=== PATIENT | female | born 1965 | race Caucasian/White ===

== ENCOUNTER 2024-06-08 22:17 | Inpatient (IN) | payer OTHER, SELFPAY ==
--- NOTE | 2024-06-08 | ECG_ITS ---
Test Reason : ABDOMINAL PAIN Blood Pressure : / mmHG Vent. Rate : 064 BPM Atrial Rate : 064 BPM P-R Int : 138 ms QRS Dur : 082 ms QT Int : 424 ms P-R-T Axes : 031 -04 043 degrees QTc Int : 437 ms Normal sinus rhythm Nonspecific ST and T wave abnormality Abnormal ECG No previous ECGs available Referred By: Generic ED Physician Electronically Signed By:NIURKA HERNANDES
--- NOTE | ~2024-06-08 | MR_ITS ---
EXAMINATION: MR ABDOMEN WITHOUT AND WITH CONTRAST CLINICAL INFORMATION: Abdominal pain, pancreatitis. COMPARISON: CT abdomen/pelvis 06/09/2024. TECHNIQUE: MR abdomen was performed without and with use of 10 mL intravenous Gadavist gadolinium contrast. Postcontrast images are performed in multiphase dynamic sequences. Imaging was performed in 3 planes. 3D MRCP images were processed on an independent workstation under concurrent supervision. FINDINGS: LUNG BASES: Bibasilar subsegmental atelectasis. LIVER, GALLBLADDER, AND BILIARY TREE: Enlarged liver measuring 21.6 cm craniocaudally with some degree of signal loss in the out of phase dual-echo images suggesting hepatic steatosis. Otherwise, the liver is normal in morphology. Regions of arterial phase hyperenhancement surrounding some of the intrahepatic dilated bile ducts in the superior right hepatic lobe (18:15) that become isoattenuating to liver background on later phases of contrast with no clear corresponding T2 signal abnormality. Cholecystectomy. Redemonstration of severe intra and extrahepatic biliary ductal dilatation with the common hepatic and common bile ducts measuring up to 1.2 cm in diameter. A few subtle central and anteriorly located foci of low T2 signal are noted in the lumen of the CBD (for example images 35 and 36 series 5). The CBD tapers immediately adjacent to the ampullary region without a discrete measurable obstructive mass. PANCREAS: Again noted is significant peripancreatic fat stranding and free fluid extending into the retroperitoneum and right greater than left paracolic gutters, in keeping with acute edematous interstitial pancreatitis. There is free fluid as well filling the pancreatic clefts but overall there is preserved pancreatic parenchymal enhancement without evidence of necrosis. A discrete focal pancreatic lesion is not visualized. No organized peripancreatic collections. The main pancreatic duct is mildly prominent at the level of the head measuring up to 5 mm in diameter without clear intraluminal defects nor abrupt transition points. SPLEEN: Normal. ADRENAL GLANDS: Normal. KIDNEYS AND URETERS: Cystic mass exophytically from the upper right kidney measuring 9.4 x 10.4 x 9.7 cm with less than 3 thin and smooth internal septations, no mural nodules and no measurable enhancement, Bosniak 2 lesion, for which no imaging followup is recommended. Multiple additional much smaller simple Bosniak 1 cortical cysts bilaterally, for which no imaging followup is recommended. No hydronephrosis. Symmetric nephrograms. GASTROINTESTINAL TRACT: No evidence of bowel obstruction. ABDOMINAL WALL: No significant hernia is appreciated. LYMPH NODES: Prominent periportal and peripancreatic lymph nodes, most likely reactive in nature. No lymphadenopathy by size criteria. VASCULAR: Normal caliber of the abdominal aorta. No significant abnormality. OSSEOUS STRUCTURES: No acute or aggressive-appearing osseous findings. Degenerative changes of the spine. ADDITIONAL FINDINGS: A few homogeneously low T2 signal uterine lesions are most consistent with fibroids. The endometrium is within the upper limits of normal for a patient of this age measuring up to 7 mm in thickness. MR/MR abdomen wo/w con IMPRESSION: Again noted findings most consistent with acute edematous interstitial pancreatitis. Redemonstration of severe intra and extrahepatic biliary ductal dilatation up to the level of the ampulla with a few very subtle indeterminate low T2 signal voids in the lumen of the CBD that could be artifactual, although debris and stones are not excluded. The proximal main pancreatic duct is mildly prominent measuring up to 5 mm in diameter without discrete intraluminal defects nor measurable obstructive mass. A clear periampullary measurable mass is not seen. Recommend further evaluation with ERCP. Hepatomegaly with hepatic steatosis. Regions of arterial phase hyperenhancement without corresponding signal abnormalities in other sequences surrounding some of the dilated intrahepatic bile ducts in the upper right hepatic lobe, suggestive of transient perfusional signal abnormalities. Recommend clinical correlation for acute cholangitis. Endometrium is within the upper limits of normal in thickness for patient's age, recommend clinical correlation for any postmenopausal bleeding and LOGISTICS SERVICE REPRESENTATIVE referral for further evaluation. Electronically signed by: Tamara Ureña MD 06/10/2024 12:27 PM EDT
--- NOTE | ~2024-06-08 | CT_ITS ---
EXAMINATION: CT ABDOMEN PELVIS WITH IV CONTRAST CLINICAL INFORMATION: epigastric pain COMPARISON: None. TECHNIQUE: IV contrast and CT of the abdomen and pelvis. Intravenous Contrast: Omnipaque [address] examination was performed using dose optimization techniques as appropriate, variously including the following: *Automated exposure control *Adjustment of mA and/or kV according to patient size (this includes techniques or standardized protocols for targeted exams where dose is matched to indication/reason for exam; i.e. extremities or head) *Use of iterative reconstruction technique DLP: 696 mGy-cm FINDINGS: Marked diffuse intrahepatic and extrahepatic biliary duct dilatation is identified with the common bile duct measuring 8 mm in diameter. The gallbladder is absent and cholecystectomy clips are noted. The main pancreatic duct measures 5 mm in diameter. Vague hypodensity over region measuring 4 cm in diameter is present in the head and uncinate process of the pancreas (series 7 image 33 moderate peripancreatic inflammatory changes and infiltrative peripancreatic fluid is present with inflammatory changes and fluid extending into the left anterior pararenal space, the transverse mesocolon and root of the small bowel mesentery. Inflammatory changes surround the second and third portion of the duodenum. No pancreatic hemorrhage identified. The splenic vein and main portal vein are patent. No abdominal lymphadenopathy is identified. The spleen and adrenal glands are normal in appearance. Multiple bilateral rounded low density renal lesions consistent with simple cysts are present and require no additional imaging follow-up. The largest of these measures 10 cm in diameter and is associated with the superior pole the right kidney. Urinary bladder demonstrates moderate physiologic distention. The uterus is directed rightward and anteverted. No adnexal lesions. Mild colonic diverticulosis noted. Normal appendix. Normal terminal ileum. Normal appearance of the stomach. Diastases of the abdominis rectus muscles is present with 13 mm diastases ventral herniation of small and large bowel segments without associated incarceration or mesenteric inflammatory changes. The abdominal aorta is normal in caliber. Mild aortoiliac calcific atherosclerosis. Probable right gluteal injection granulomas noted. Internal note is made of a pectus excavatum deformity. Mild rotatory levoscoliosis of the lumbar spine is present. No suspicious skeletal lesions visualized. CT/CT abdomen pelvis w IV con IMPRESSION: *Acute interstitial pancreatitis, fsunctional or mechanical obstruction in the region of the ampulla of Vater and findings suspicious for possible pancreatic neoplasm. Interstitial inflammatory changes of the pancreas and peripancreatic inflammatory changes are present as detailed above. Furthermore, findings are present in association with diffuse biliary duct dilatation and dilatation of the main pancreatic duct. These latter findings suggest obstruction in the region of the ampulla Vater which may be secondary to occult neoplasm or distal choledocholithiasis. Vague hypodensity is present in the head of the pancreas may represent interstitial edematous changes and/or infiltrative tumor. Pancreatic neoplasm may be obscured from visualization by acute inflammatory changes. Recommend further evaluation with pancreatic MRI and MRCP as clinically indicated. *Status post cholecystectomy. *Rectus abdominis diastases. *Mild colonic diverticulosis. Electronically signed by: Julian Fernandez MD 06/09/2024 01:41 AM EDT
[2024-06-08 22:18] VITALS: BP 189/103; PULSE 70; RESP 18; TEMP 36.6; O2SAT 97; BMI 31.0
[2024-06-08 22:41] LABS: MANUAL DIFF FLAG NO
[2024-06-08 22:43] LABS: Basophils Percent Auto 0.2 % (0-2); Hematocrit 49.1 % (37.0-47.0); Hemoglobin 16.9 g/dl (12.0-16.0); Imm Gran Abs Auto 0.04 X10*3/uL (0.00-0.03); Imm Gran Pct Auto 0.4 % (0.0-0.4); Lymphocytes Absolute Auto 0.8 X10*3/uL (1.2-4.9); Lymphocytes Percent Auto 7.1 % (20-40); Mean Corpuscular HGB Conc 34.4 g/dl (31.0-35.0); Mean Corpuscular Hemoglobin 28.7 pg (27.0-33.0); Mean Corpuscular Volume 83.4 fL (80.0-98.0); Mean Platelet Volume 9.4 fL (9.4-12.3); Monocytes Absolute Auto 0.4 X10*3/uL (0.1-1.2); Monocytes Percent Auto 4.2 % (2-11); Neutrophils Absolute Auto 9.3 x10*3/uL (2.0-8.3); Neutrophils Percent Auto 88.1 % (45-73); Platelet Count 204 X10*3/uL (160-400); Red Blood Count 5.89 X10*6/uL (4.20-5.50); Red Cell Distribution Width 12.8 % (11.0-16.0); White Blood Count 10.5 X10*3/uL (4.8-10.8)
[2024-06-08 23:02] LABS: Alanine Aminotransferase 170 U/L (0-31); Albumin Level 4.3 g/dL (3.5-5.0); Alkaline Phosphatase 119 U/L (39-117); Anion Gap 16 (12-20); Aspartate Amino Transferase 245 U/L (5-31); Bilirubin Total 1.7 mg/dL (0.0-1.0); Blood Urea Nitrogen 14 mg/dL (9-16); Calcium 9.8 mg/dL (8.4-10.2); Carbon Dioxide 22 mmol/L (22-29); Chloride 109 mmol/L (96-108); Creatinine Clr Calc Pharmacy 91.2; Estimated Glomerular Filt Rate > 60; Glucose Random 209 mg/dL (60-115); Potassium 4.1 mmol/L (3.3-5.1); Sodium 143 mmol/L (135-145); Total Protein 7.4 g/dL (6.5-8.0)
[2024-06-08 23:04] LABS: Troponin-I High Sensitivity < 2.7 ng/L (<3.5-17.0)
[2024-06-08 23:13] LABS: Lipase > 3000 U/L (8-78)
[2024-06-09] MEDS: ondansetron HCL 4 MG/2 ML VIAL IVPUSH ×3 (00:30→14:59)
[2024-06-09] MEDS: Morphine Sulfate 2 MG/ML CARTRIDGE IVPUSH (00:30)
[2024-06-09] MEDS: 0.9 % Sodium Chloride 2,000 ML 999 ML IVCONT (00:33)
[2024-06-09 00:38] LABS: Triglycerides 160 mg/dL (<150)
[2024-06-09] MEDS: iohexoL 350 MG/ML 100 ML INFUS..BTL 85 ML IV (00:46)
--- NOTE | 2024-06-09 01:54 | ED.ABDPAIN ---
HPI - Abdominal Pain General Chief Complaint: Abdominal Pain Stated Complaint: sharp abd pain Time Seen by Provider: 06/09/24 00:14 Source: patient Mode of arrival: ambulatory Limitations: no limitations History of Present Illness ED Provider: Dr. Magalie León HPI narrative: patient comes in the emergency room complaining of severe epigastric pain that started approximately Twelve hours ago. patient also complaining of nausea and vomiting, no diarrhea. Patient denies any fever chills. Patient states that to her knowledge she has never been diagnosed with pancreatitis. Patient states that she has history of a cholecystectomy. Patient states that she can not tolerate any medications p.o.. Related Data Allergies Allergy/AdvReac Type Severity Reaction Status Date / Time No Known Allergies Allergy Verified 06/08/24 22:23 Review of Systems Review of Systems Constitutional : No Weight loss, No Fever, No Chills, No Night Sweats, No Fatigue, No Malaise ENT/Mouth : No Hearing loss, No Ear Pain, No Nasal Congestion, No Sinus Pain, No Hoarseness, No sore throat, No Rhinorrhea, No Swallowing Difficulty Eyes: No Eye Pain, No Swelling, No Redness, No Foreign Body, No Discharge, No Vision Changes Cardiovascular : No Chest Pain, No SOB, No Dyspnea on Exertion, No Orthopnea, No Edema, No Palpitations Respiratory : No Cough, No Sputum, No Wheezing, No Smoke Exposure, No Dyspnea Gastrointestinal : Complaining of nausea vomiting, no diarrhea, complaining of severe epigastric pain Genitourinary : no irregular bleeding, No Dysuria, No Urinary Frequency, No Hematuria, No Urinary Incontinence, No Urgency, No Flank Pain, No Urinary Flow Changes, No Hesitancy Musculoskeletal : No joint pain, No Myalgias, No Joint Swelling Skin : No Skin Lesions, No rash Neuro : No Weakness, No Numbness, No Paresthesias, No Loss of Consciousness, No Dizziness, No Headache Psych : No Anxiety/Panic, No Depression, No SI/HI/AH/VH, No Social Issues, Heme/Lymph: No Bruising, No Bleeding,No Lymphadenopathy Endocrine : No Polyuria, No Polydipsia, No Temperature Intolerance [facility], [facility] Past Medical History Medical History (Updated 06/09/24 @ 02:06 by Magalie León MD) No pertinent past medical history Social History Social History Advance Directives: No Advance Directives Information Provided: Yes Do you have a plan to hurt others: No Plan Physical Exam ED Vital Signs: Vital Signs - 24 hr 06/08/24 22:18 06/09/24 02:06 Temperature 97.8 F Pulse Rate 70 73 Respiratory Rate 18 16 Blood Pressure 189/103 H 172/100 H Pulse Oximetry 97 94 Oxygen Delivery Method Room Air Room Air BMI result Body Mass Index 31.0 Const Other: Appearance: Alert. Oriented X3. patient looks very uncomfortable Eyes: Pupils equal, round and reactive to light. ENT: Pharynx normal. Neck: Normal inspection. Neck supple. No lymph nodes noted. No crepitus CVS: Normal heart rate and rhythm. Pulses normal. Normal S1 and S2 Respiratory: No respiratory distress. Breath sounds normal. No Wheezing. No rales Abdomen: Soft , significant tenderness to palpation in epigastric area Skin: Skin warm and dry. Normal skin color. Normal skin turgor. Extremities: No lower extremity edema. No Lacerations. No Rash Neuro: Oriented X 3. No motor deficit. No sensory deficit. Moving all extremities. No slurred speech. CN 2 through 12 grossly intact Psych: calm, cooperative, normal affect Course Course Course Narrative: patient receiving IV fluids, Zofran and morphine for pain relief. Medical Decision Making Medical Decision Making [facility] Narrative: - My interpretation of labs: Patient's white blood cell count normal, white blood cell count 10.5. Chemistry unremarkable, glucose slightly elevated at 209. Patient total bilirubin 1.7, AST 245, ALT 170, alk-phos 119, triglycerides 160, lipase greater than 3000 - I discussed the patient with Dr. Meza from Gastroenterology, recommendations: MRI of the abdomen with and without contrast, MRCP. eventually patient will need ERCP and or endoscopic ultrasound - I discussed the above-mentioned with Dr. Lyons, patient being admitted. - I discussed with the patient that there is an obstruction around her pancreas of unclear etiology for which she will need more tests and imaging in the morning. Patient agreeable. - Differential Diagnosis Differential Diagnoses: The differential diagnosis associated with the presentation includes ( pancreatitis, pancreatic neoplasm, peptic ulcer perforation) Admission/Observation Consideration of admission/observation: Escalation of care including admission/observation considered Consult Healthcare Provider Management of the patient was discussed with: Hospitalist and Attractions Associate Lab Data [facility] Lab Attestation statement: I reviewed the patient's lab results. 06/08/24 22:35 06/08/24 22:35 Labs: Lab Results 06/08/24 06/09/24 Range/Units 22:35 01:49 WBC 10.5 (4.8-10.8) X10*3/uL RBC 5.89 H (4.20-5.50) X10*6/uL Hgb 16.9 H (12.0-16.0) g/dl Hct 49.1 H (37.0-47.0) % MCV 83.4 (80.0-98.0) fL MCH 28.7 (27.0-33.0) pg MCHC 34.4 (31.0-35.0) g/dl RDW 12.8 (11.0-16.0) % Plt Count 204 (160-400) X10*3/uL MPV 9.4 (9.4-12.3) fL Immature Gran % (Auto) 0.4 (0.0-0.4) % Neut % (Auto) 88.1 H (45-73) % Lymph % (Auto) 7.1 L (20-40) % Brantley % (Auto) 4.2 (2-11) % Eos % (Auto) 0.0 (0-4) % Baso % (Auto) 0.2 (0-2) % Lymph # (Auto) 0.8 L (1.2-4.9) X10*3/uL Brantley # (Auto) 0.4 (0.1-1.2) X10*3/uL Eos # (Auto) 0.0 (0.0-0.4) X10*3/uL Baso # (Auto) 0.0 (0.0-0.2) X10*3/uL Abs Immat Gran (auto) 0.04 H (0.00-0.03) X10*3/uL Absolute Neuts (auto) 9.3 H (2.0-8.3) x10*3/uL Absolute Nucleated RBC 0.000 (0.0-0.012) X10*3/uL Nucleated RBC % (auto) 0.0 (0.0-0.2) /100WBC Sodium 143 (135-145) mmol/L Potassium 4.1 (3.3-5.1) mmol/L Chloride 109 H (96-108) mmol/L Carbon Dioxide 22 (22-29) mmol/L Anion Gap 16 (12-20) BUN 14 (9-16) mg/dL Creatinine 0.78 (0.5-1.4) mg/dL Estim Creat Clear Calc 91.2 Estimated GFR > 60 Random Glucose 209 H (60-115) mg/dL Calcium 9.8 (8.4-10.2) mg/dL Total Bilirubin 1.7 H (0.0-1.0) mg/dL Direct Bilirubin 0.5 (0.0-0.5) mg/dL AST 245 H (5-31) U/L ALT 170 H (0-31) U/L Alkaline Phosphatase 119 H (39-117) U/L Troponin I High Sens < 2.7 (<3.5-17.0) ng/L Total Protein 7.4 (6.5-8.0) g/dL Albumin 4.3 (3.5-5.0) g/dL Triglycerides 160 H (<150) mg/dL Lipase > 3000 H (8-78) U/L Urine Color Yellow Urine Appearance Cloudy Urine pH 7.0 (5.0-9.0) Ur Specific Downing >= 1.030 H (1.005-1.025) Urine Protein 30 (1+) H (Neg-Trace) mg/dL Urine Glucose (UA) 100 H (Negative) mg/dL Urine Ketones Negative (Negative) mg/dL Urine Blood Trace H (Negative) Urine Nitrite Negative (Negative) Ur Leukocyte Esterase Negative (Negative) Urine RBC 3-5 H (0-2) /HPF Urine WBC 0-5 (0-5) /HPF Ur Squamous Epith Cells 0-2 (0-2) /HPF Urine Bacteria 4+ (None Seen) Hyaline Casts 0-2 (0-2) /LPF Independent Interpretation I performed an independent interpretation of an: CT Scan Radiology Impression Discussion of test interpretation with radiology: I have reviewed the radiologist's reading. Radiologist Impression: Marked diffuse intrahepatic and extrahepatic biliary duct dilatation is identified with the common bile duct measuring 8 mm in diameter. The gallbladder is absent and cholecystectomy clips are noted. The main pancreatic duct measures 5 mm in diameter. Vague hypodensity over region measuring 4 cm in diameter is present in the head and uncinate process of the pancreas (series 7 image 33 moderate peripancreatic inflammatory changes and infiltrative peripancreatic fluid is present with inflammatory changes and fluid extending into the left anterior pararenal space, the transverse mesocolon and root of the small bowel mesentery. Inflammatory changes surround the second and third portion of the duodenum. No pancreatic hemorrhage identified. The splenic vein and main portal vein are patent. No abdominal lymphadenopathy is identified. The spleen and adrenal glands are normal in appearance. Multiple bilateral rounded low density renal lesions consistent with simple cysts are present and require no additional imaging follow-up. The largest of these measures 10 cm in diameter and is associated with the superior pole the right kidney. Urinary bladder demonstrates moderate physiologic distention. The uterus is directed rightward and anteverted. No adnexal lesions. Mild colonic diverticulosis noted. Normal appendix. Normal terminal ileum. Normal appearance of the stomach. Diastases of the abdominis rectus muscles is present with 13 mm diastases ventral herniation of small and large bowel segments without associated incarceration or mesenteric inflammatory changes. The abdominal aorta is normal in caliber. Mild aortoiliac calcific atherosclerosis. Probable right gluteal injection granulomas noted. Internal note is made of a pectus excavatum deformity. Mild rotatory levoscoliosis of the lumbar spine is present. No suspicious skeletal lesions visualized. CT/CT abdomen pelvis w IV con IMPRESSION: *Acute interstitial pancreatitis, fsunctional or mechanical obstruction in the region of the ampulla of Vater and findings suspicious for possible pancreatic neoplasm. Interstitial inflammatory changes of the pancreas and peripancreatic inflammatory changes are present as detailed above. Furthermore, findings are present in association with diffuse biliary duct dilatation and dilatation of the main pancreatic duct. These latter findings suggest obstruction in the region of the ampulla Vater which may be secondary to occult neoplasm or distal choledocholithiasis. Vague hypodensity is present in the head of the pancreas may represent interstitial edematous changes and/or infiltrative tumor. Pancreatic neoplasm may be obscured from visualization by acute inflammatory changes. Recommend further evaluation with pancreatic MRI and MRCP as clinically indicated. *Status post cholecystectomy. *Rectus abdominis diastases. *Mild colonic diverticulosis. Medications Administered Discontinued Medications Generic Name Dose Route Start Last Admin Trade Name Freq PRN Reason Stop Dose Admin Sodium Chloride 2,000 mls @ 999 mls/hr 06/09/24 00:20 06/09/24 00:33 Ns IVCONT 06/09/24 02:20 999 mls/hr .Q2H1M ONE Administration Iohexol 85 ml 06/09/24 00:46 06/09/24 00:46 Iohexol 350 Mg/Ml 100 Ml Infus..Btl IV 06/09/24 00:47 85 ml ONCE ONE Administration Morphine Sulfate 2 mg 06/09/24 00:20 06/09/24 00:30 Morphine Sulfate 2 Mg/Ml Cartridge IVPUSH 06/09/24 00:21 2 mg ONCE ONE Administration Protocol Morphine Sulfate 4 mg 06/09/24 02:09 06/09/24 02:11 Morphine Sulfate 4 Mg/Ml Cartridge IVPUSH 06/09/24 02:10 4 mg ONCE ONE Administration Protocol Ondansetron HCl 4 mg 06/09/24 00:20 06/09/24 00:30 Ondansetron Hcl 4 Mg/2 Ml Vial IVPUSH 06/09/24 00:21 4 mg ONCE ONE Administration Critical Care Time Critical Care Time Critical Care Time: Yes Total Critical Care Time: 60 Attestation: I have personally provided critical care time. Time includes review of lab data, radiology results, discussion with consultants, and monitoring for potential decompensation. Intervention performed as documented. Discharge Plan Discharge Clinical Impression: Acute pancreatitis, Pancreatic mass Patient Disposition: Admitted As Inpatient Print Language: Lao
[2024-06-09 01:59] LABS: Appearance Urine Cloudy; Color Urine Yellow; Glucose Urine UA 100 mg/dL (Negative); Leukocyte Esterase Urine Negative (Negative); Nitrite Urine Negative (Negative); Specific Gravity - Urine >= 1.030 (1.005-1.025); UMIC TRIGGER UACC YES; Urine Blood Trace (Negative); Urine Ketones Negative (Negative); Urine Protein 30 (1+) mg/dL (Neg-Trace)
[2024-06-09 02:01] LABS: Bacteria Urine 4+ (None Seen); Hyaline Casts Urine 0-2 /LPF (0-2); Squamous Epithelial Cell Urine 0-2 /HPF (0-2); WBC Urine 0-5 /HPF (0-5)
[2024-06-09 02:06] VITALS: BP 172/100; PULSE 73; RESP 16; O2SAT 94
[2024-06-09] MEDS: Morphine Sulfate 4 MG/ML CARTRIDGE IVPUSH ×2 (02:11→09:13)
[2024-06-09 02:25] LABS: Bilirubin Direct 0.5 mg/dL (0.0-0.5)
--- NOTE | 2024-06-09 02:55 | P.HPHOSP_ITS ---
History of Present Illness Date of Service: 06/09/24 Chief Complaint: abdominal pain This is a 59-year-old female with no pertinent past medical history and not on prescription medications who presents to the emergency department for evaluation of abdominal pain. Patient states she had sudden onset of severe epigastric discomfort that started on the day of presentation. It was constant, radiated to the back and without any relieving factors. No history of similar pains before. Also had associated nausea and vomiting with the pain. Patient is unable to tolerate p.o. intake. Does have a history of cholecystectomy. No history of pancreatitis before. No fever, chills, chest discomfort, palpitations, shortness of breath, changes in urinary or bowel habits. In the emergency department, lipase found to be elevated along with elevation of AST/ALT and alkaline phosphatase. Imaging with acute interstitial pancreatitis and obstruction of the ampulla of Vater. Review of Systems 2 Constitutional: Constitutional: Reports poor appetite Cardiovascular: Cardiovascular: Reports no additional cardiovascular complaints Respiratory: Respiratory: Reports no additional respiratory complaints Gastrointestinal: Gastrointestinal: Reports abdominal pain, Reports nausea and Reports vomiting Genitourinary: Genitourinary: Reports no additional female genitourinary complaints [facility] Medical History No pertinent past medical history Pertinent family history: No family history of early CAD Social History Smoked in Last 30 Days: No Use of substances other than those prescribed or required for medical reasons: No Advance Directives: No Advance Directives Information Provided: Yes Do you have a plan to hurt others: No Plan Patient : No Meds Allergies Allergy/AdvReac Type Severity Reaction Status Date / Time No Known Allergies Allergy Verified 06/08/24 22:23 Physical Exam 2 Vital Signs and Narrative: Vital Signs: Last Vital Signs Temp 97.8 F 06/08/24 22:18 Pulse 73 06/09/24 02:06 Resp 16 06/09/24 02:06 BP 172/100 H 06/09/24 02:06 Pulse Ox 94 06/09/24 02:06 O2 Del Method Room Air 06/09/24 02:06 BMI result Body Mass Index 31.0 Middle-aged female lying in bed in no distress Neck supple, no JVD Regular rate and rhythm, S1-S2 heard Regular breath sounds bilaterally, no wheezing or crackles appreciated Abdomen with a epigastric tenderness, no rigidity, no rebound tenderness Patient is awake, alert and oriented to self, place, time and person ; no focal motor deficit Psych: Normal mood No pedal edema Results Labs 06/08/24 22:35 06/08/24 22:35 Labs: Laboratory Results - last 24 hr 06/08/24 06/09/24 22:35 01:49 MCV 83.4 MCH 28.7 MCHC 34.4 RDW 12.8 Plt Count 204 MPV 9.4 Immature Gran % (Auto) 0.4 Neut % (Auto) 88.1 H Lymph % (Auto) 7.1 L [place] % (Auto) 4.2 Eos % (Auto) 0.0 Baso % (Auto) 0.2 Lymph # (Auto) 0.8 L [place] # (Auto) 0.4 Eos # (Auto) 0.0 Baso # (Auto) 0.0 Abs Immat Gran (auto) 0.04 H Absolute Neuts (auto) 9.3 H Absolute Nucleated RBC 0.000 Nucleated RBC % (auto) 0.0 Anion Gap 16 Estim Creat Clear Calc 91.2 Estimated GFR > 60 Random Glucose 209 H Calcium 9.8 Total Bilirubin 1.7 H Direct Bilirubin 0.5 AST 245 H ALT 170 H Alkaline Phosphatase 119 H Troponin I High Sens < 2.7 Total Protein 7.4 Albumin 4.3 Triglycerides 160 H Lipase > 3000 H Urine Color Yellow Urine Appearance Cloudy Urine pH 7.0 Ur Specific [place] >= 1.030 H Urine Protein 30 (1+) H Urine Glucose (UA) 100 H Urine Ketones Negative Urine Blood Trace H Urine Nitrite Negative Ur Leukocyte Esterase Negative Urine RBC 3-5 H Urine WBC 0-5 Ur Squamous Epith Cells 0-2 Urine Bacteria 4+ Hyaline Casts 0-2 Imaging Radiologist's Impressions: Impressions Abdomen/Pelvis CT 06/09/24 00:18 IMPRESSION: *Acute interstitial pancreatitis, fsunctional or mechanical obstruction in the region of the ampulla of Vater and findings suspicious for possible pancreatic neoplasm. Interstitial inflammatory changes of the pancreas and peripancreatic inflammatory changes are present as detailed above. Furthermore, findings are present in association with diffuse biliary duct dilatation and dilatation of the main pancreatic duct. These latter findings suggest obstruction in the region of the ampulla Vater which may be secondary to occult neoplasm or distal choledocholithiasis. Vague hypodensity is present in the head of the pancreas may represent interstitial edematous changes and/or infiltrative tumor. Pancreatic neoplasm may be obscured from visualization by acute inflammatory changes. Recommend further evaluation with pancreatic MRI and MRCP as clinically indicated. *Status post cholecystectomy. *Rectus abdominis diastases. *Mild colonic diverticulosis. Electronically signed by: Julian Fernandez MD 06/09/2024 01:41 AM EDT RP Assessment and Plan (1) Acute pancreatitis: Status: Acute Plan This is a 59-year-old female with no pertinent past medical history and not on prescription medications who presents to the emergency department for evaluation of abdominal pain. #. Acute pancreatitis due to obstruction of ampulla: Will admit patient with IV opiate p.r.n. for analgesia. Continue IV crystalloid resuscitation. Imaging with mechanical or functional obstruction of ampulla of Vater, suspicious for pancreatic neoplasm. Obtaining MRI abdomen with and without contrast and MRCP to further delineate anatomy. Consulted Gastroenterology, appreciate assistance. Will keep patient NPO for bowel rest #. Elevated transaminases in the setting of above #. Asymptomatic bacteriuria: No indication for treatment DVT prophylaxis: Lovenox Full code Admit as inpatient and will require two night minimum hospital stay for IV opioids, IV crystalloids (as above), which is not possible in a lesser acute setting. Specialist consult pending Quality Stroke Does the patient have a stroke diagnosis?: No VTE Prior VTE?: No VTE Risk Level:: Medical - moderate - high VTE Device Contraindication: Treatment Not Indicated VTE Drug Contraindication: N/A - Med Ordered
[2024-06-09] MEDS: HYDROmorphone HCl 2 MG/ML VIAL 1.5 MG IVPUSH (03:16)
[2024-06-09] MEDS: Milk of Magnesia 30 ML ORAL.SUSP PO (04:42)
[2024-06-09] MEDS: Calcium Carbonate 750 MG TAB.CHEW PO (04:42)
[2024-06-09] MEDS: Lactated Ringers 1,000 ML 125 ML IVCONT ×3 (04:43→22:21)
[2024-06-09 05:18] LABS: MANUAL DIFF FLAG NO
[2024-06-09 05:19] LABS: Basophils Percent Auto 0.2 % (0-2); Eosinophils Percent Auto 0.1 % (0-4); Hematocrit 49.8 % (37.0-47.0); Hemoglobin 16.5 g/dl (12.0-16.0); Imm Gran Abs Auto 0.05 X10*3/uL (0.00-0.03); Imm Gran Pct Auto 0.4 % (0.0-0.4); Lymphocytes Absolute Auto 0.6 X10*3/uL (1.2-4.9); Lymphocytes Percent Auto 4.9 % (20-40); Mean Corpuscular HGB Conc 33.1 g/dl (31.0-35.0); Mean Corpuscular Hemoglobin 28.5 pg (27.0-33.0); Mean Platelet Volume 9.8 fL (9.4-12.3); Monocytes Absolute Auto 0.7 X10*3/uL (0.1-1.2); Monocytes Percent Auto 6.1 % (2-11); Neutrophils Absolute Auto 9.9 x10*3/uL (2.0-8.3); Neutrophils Percent Auto 88.3 % (45-73); Platelet Count 182 X10*3/uL (160-400); Red Blood Count 5.79 X10*6/uL (4.20-5.50); Red Cell Distribution Width 13.1 % (11.0-16.0); White Blood Count 11.2 X10*3/uL (4.8-10.8)
[2024-06-09 05:39] LABS: Anion Gap 17 (12-20); Blood Urea Nitrogen 11 mg/dL (9-16); Calcium 8.7 mg/dL (8.4-10.2); Carbon Dioxide 19 mmol/L (22-29); Chloride 110 mmol/L (96-108); Creatinine Clr Calc Pharmacy 97.4; Estimated Glomerular Filt Rate > 60; Glucose Random 166 mg/dL (60-115); Potassium 4.6 mmol/L (3.3-5.1); Sodium 141 mmol/L (135-145)
[2024-06-09 08:20] VITALS: BP 163/79; PULSE 68; RESP 14; O2SAT 93
--- NOTE | 2024-06-09 08:47 | PHA.MEDREC ---
Pharmacy Consult ? Medication Reconciliation Pharmacy has completed the medication reconciliation. Patient stated she takes various OTC vitamins and supplements but does not want to continue any of them in house.
[2024-06-09] MEDS: Enoxaparin Sodium 40 MG/0.4 ML SYRINGE SUBCUT (09:14)
--- NOTE | 2024-06-09 09:14 | PC.NURSE ---
remains alert and oriented with even and unlabored respirations. ambulates independently, IV fluids continue to infuse. medicated per the MAR w/ PRN morphine. remains NPO at this time.
--- NOTE | 2024-06-09 10:38 | PM.EVENT ---
Event Note Date of Service: 06/09/24 Event Note: admitted this morning. patient seen and examined, med reviewd. 59-year-old female with no pertinent past medical history and not on prescription medications who presents to the emergency department for evaluation of abdominal pain and found have acute pancreatitis with pancreatic lesin Acute pancreatitis, abd pain, concern for pancreatic neoplasm -pain control -iv fluid -gi consult -MRCP Elevated transaminases-related to above -follow LFTs Asymptomatic bacteriuria:hold Abx DVT prophylaxis: Lovenox Full code Time Spent With Patient Time: Total time managing care of this patient today ____ minutes.
[2024-06-09 12:16] VITALS: BP 158/88; PULSE 73; RESP 14; O2SAT 92
--- NOTE | 2024-06-09 12:47 | PM.EVENT ---
Event Note Date of Service: 06/09/24 Event Note: GI-Consult received and chart reviewed. I will see patient later today. Acute pancreatitis with component of biliary obstruction. Pancreatic neoplasm vs. CBD stone vs> Ampullary tumor Agree with MRI/MRCP, will recheck labs today, and continue supportive care. Will decide re:ERCP vs. Endoscopic U/S depending upon test results and clinical course. Thanks Time Spent With Patient Time: Total time managing care of this patient today ____ minutes.
--- NOTE | 2024-06-09 14:27 | MHC.CM.PN ---
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 PT REPORTS SHE HAS NOT HAD A PCP IN A FEW YRS, PT TO BE GIVEN PAMPHLET [facility] PROVIDERS, PT EDUCTAED ON AND DECLINES TO COMPLETE A HCP.
[2024-06-09] MEDS: gadobutroL 10 ML VIAL IVPUSH (16:27)
--- NOTE | 2024-06-09 19:22 | PM.EVENT ---
Event Note Date of Service: 06/09/24 Event Note: GI Consult-Full note dictated-D/W patient and in detail Imp: Acute pancreatitis. Given the acuity of the onset and rapid clinical improvement I suspect this represents a biliary source of pancreatitis due possibly to a passed CBD stone. The other possibility is a pancreatic neoplasm or ampullary tumor. Less likely would be autoimmune pancreatitis. She denies any new medications or alcohol. Her TG's are WNL. Rec: Check [facility] as [facility] having been [facility]. Check F/U labs in AM. Supportive care. If there is a CBD stone on the MRCP, I did advise the patient and her of the need for an ERCP for stone removal. Full consent has been obtained for this, including risks of bleeding, perforation, cholangitis, and pancreatitis. If the MRCP is negative for a retained CBD stone or tumor, then we could presume she passed a CBD stone. If the latter is the case then at that point I would recommend advancing her diet as tolerated. The patient and her are comfortable with this plan. Thanks Time Spent With Patient Time: Total time managing care of this patient today ____ minutes.
--- NOTE | 2024-06-09 19:24 | PC.NURSE ---
Assumed care of pt. Pt returned from MRI, MD Meza at bedside. Pt AxO x4, no acute distress at this time. After MD Meza left, pt up and ambulating to bathroom with steady gait. Continuing plan of care.
--- NOTE | 2024-06-09 19:50 | PC.NURSE ---
Pt currently awake, endorsing pain in sacral area. On turning patient, discovered small, quarter sized area of skin breakdown. Cleaned and dressed with Allevyn dressing. ED Provider notified.
[2024-06-09 20:18] VITALS: BP 151/78; PULSE 72; RESP 16; TEMP 36.3; O2SAT 95
[2024-06-09] MEDS: Melatonin 3 MG TABLET 6 MG PO (20:28)
[2024-06-09] MEDS: Acetaminophen 325 MG TABLET 650 MG PO (20:28)
[2024-06-10] MEDS: Lactated Ringers 1,000 ML 125 ML IVCONT ×4 (01:01→20:07)
[2024-06-10] MEDS: Acetaminophen 325 MG TABLET 650 MG PO ×2 (02:42→11:01)
[2024-06-10 04:00] VITALS: BP 179/89; PULSE 78; RESP 18; TEMP 37.1; O2SAT 93
--- NOTE | 2024-06-10 04:30 | CONS_ITS ---
DATE OF SERVICE: 06/09/2024 REASON FOR CONSULTATION: Acute pancreatitis. HISTORY OF PRESENT ILLNESS: This has been obtained from the patient and her , as well as from the medical record and her nurse. The patient is a 59-year-old female who is typically very healthy and without any particular complaints, who developed the acute onset of upper abdominal pain yesterday afternoon. Prior to that, she had been feeling very well with normal appetite. She had been eating comfortably and denies any preceding history of heartburn, nausea, vomiting, abdominal pain, nor dysphagia. Her bowel movements have been regular and without any signs of bleeding nor other changes such as diarrhea or constipation. She has no previous history of liver disease and denies any previous jaundice. She denies any previous history of this type of upper abdominal pain. She has not been using any new medication. She takes some supplements, but no other [id number] nor prescription medication. She does not use any chronic NSAIDs. When her pain started yesterday, she did take a homemade remedy which involved a bunch of different herbs and a tiny bit of alcohol. However, when questioning her, she denies any use of alcohol otherwise completely and specifically denies any recent alcohol consumption other than the tiny bit she had after her pain started yesterday. She does describe that her son has had a couple episodes of pancreatitis, but she is not sure of the etiology of that. She denies any personal nor family history of liver disease. When she presented to the ER yesterday, she was found to have pancreatitis based on her laboratories and CT scan. She was admitted for further evaluation. Since being admitted yesterday, she reports that she is definitely feeling much better today. She is having some very minimal upper abdominal pain and tenderness, but definitively dramatically better than yesterday. She has had no further problems and denies any vomiting. She has been hemodynamically stable. MEDICATIONS: At home none other than some [id number] supplements. PAST MEDICAL HISTORY: Cholecystectomy about 28 years ago, she thinks this was done in [place]. She denies any other surgeries. She denies any medical problems such as diabetes, heart disease, stroke, lung disease nor kidney disease. SOCIAL HISTORY: She is originally from [place] [facility], but has been in [facility] for about 28 years. 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 She does not smoke nor use any alcohol. FAMILY HISTORY: Noncontributory other than her son's history of pancreatitis of unclear etiology according to the patient. She denies any known family history of GI malignancy. REVIEW OF SYSTEMS: CONSTITUTIONAL: Prior to yesterday afternoon, she was feeling very well with good energy and good appetite. SKIN: No rash, no pruritus. CARDIAC: No chest pain. PULMONARY: No coughing or hemoptysis. GI: As above. URINARY: No dysuria or hematuria. NEUROLOGIC: No headache or seizures. PHYSICAL EXAMINATION: GENERAL: Again, the patient is a pleasant, alert, comfortable-appearing female. SKIN: Warm and dry. Nonjaundiced. Anicteric sclerae. NECK: Supple without lymphadenopathy. CHEST: Clear. CARDIAC: Normal S1, S2. ABDOMEN: Soft, nondistended. Bowel sounds are somewhat diminished. She does have some mild upper abdominal tenderness without mass, rebound, or guarding. EXTREMITIES: Without edema. NEUROLOGIC: She is alert and oriented. She answers questions appropriately. LABORATORY DATA: White blood cell count 10.5, hemoglobin 16.9. This morning, white blood cell count 11.2, hemoglobin 16.5, and platelets 182,000. Laboratories from yesterday revealed normal electrolytes, blood sugar 209, total bilirubin 1.7, direct bilirubin 0.5, AST 245, ALT 170, and alkaline phosphatase 119. Triglyceride level was 160 and lipase was over 3000. Laboratories today revealed normal chemistries, blood sugar 166, and calcium 8.7. She did not have any repeat LFTs nor lipase. IMAGING STUDIES: Her imaging study done thus far, which I can obtain a reading was that of a CAT scan of the abdomen and pelvis. This revealed marked diffuse intrahepatic and extrahepatic biliary ductal dilatation with a common duct of about 8 mm. The pancreatic duct measured about 5 mm in diameter with a vague hypodensity over the region measuring 4 cm in diameter in the head and uncinate process of the pancreas. There is some fluid in the abdomen around the pancreas. Renal cysts are noted. IMPRESSION: Given the patient's excellent clinical appearance, the acuity of the onset of her symptoms and the rapid resolution for the most part in 24 hours, speaks most likely for a biliary source of pancreatitis and possible passage of a common bile duct stone. The other possibility would be that of a common duct stone remaining in the region of the biliary and pancreatic orifice of the major papilla. Given her excellent clinical appearance, the acuity of the onset of her symptoms, and the rapid resolution, I think would speak against a neoplastic process. Another possibility would be that of ampullary tumor. Autoimmune pancreatitis is another possibility, but I think even less likely. At this point, she appears very stable and comfortable. I will continue supportive care. I have ordered followup laboratories in the morning including a CA-19 level. We shall eventually obtain a report of the MRCP and MRI once they have been put into the [employer] system. I did advise the patient and her that if the MRCP does show a common duct stone remaining, she would need an ERCP for stone removal. If that is the case, I did obtain full consent for this, including risks of bleeding, perforation, cholangitis, and pancreatitis. On the other hand, if the MRCP is negative for a stone or tumor, then I advised her that I would then consider the diagnosis to be that of a passed common duct stone, and her diet at that point could be advanced as tolerated. We did review that I would recommend a followup imaging of her pancreas in a month or two to be sure the abnormalities have resolved. This has all been discussed in detail with the patient and her and they are comfortable with the plan. Thank you for the consultation. MD MEHRAN Alvarez/MAGALY / [id number] MTDD
[2024-06-10 05:42] LABS: MANUAL DIFF FLAG NO
[2024-06-10 05:52] LABS: Basophils Percent Auto 0.2 % (0-2); Eosinophils Percent Auto 0.3 % (0-4); Hematocrit 48.7 % (37.0-47.0); Hemoglobin 15.9 g/dl (12.0-16.0); Imm Gran Abs Auto 0.08 X10*3/uL (0.00-0.03); Imm Gran Pct Auto 0.6 % (0.0-0.4); Lymphocytes Percent Auto 7.9 % (20-40); Mean Corpuscular HGB Conc 32.6 g/dl (31.0-35.0); Mean Corpuscular Hemoglobin 28.1 pg (27.0-33.0); Mean Platelet Volume 9.4 fL (9.4-12.3); Monocytes Percent Auto 8.2 % (2-11); Neutrophils Absolute Auto 10.5 x10*3/uL (2.0-8.3); Neutrophils Percent Auto 82.8 % (45-73); Platelet Count 167 X10*3/uL (160-400); Red Blood Count 5.66 X10*6/uL (4.20-5.50); Red Cell Distribution Width 13.3 % (11.0-16.0); White Blood Count 12.7 X10*3/uL (4.8-10.8)
[2024-06-10 05:59] LABS: INTERNATIONAL NORM RATIO 1.2 (0.9-1.1)
[2024-06-10 06:08] LABS: Alanine Aminotransferase 89 U/L (0-31); Albumin Level 3.4 g/dL (3.5-5.0); Alkaline Phosphatase 97 U/L (39-117); Anion Gap 11 (12-20); Aspartate Amino Transferase 42 U/L (5-31); Bilirubin Direct 0.5 mg/dL (0.0-0.5); Bilirubin Total 2.1 mg/dL (0.0-1.0); Blood Urea Nitrogen 10 mg/dL (9-16); Calcium 8.8 mg/dL (8.4-10.2); Carbon Dioxide 24 mmol/L (22-29); Chloride 108 mmol/L (96-108); Creatinine Clr Calc Pharmacy 104.6; Estimated Glomerular Filt Rate > 60; Glucose Fasting 108 mg/dL (60-99); Sodium 139 mmol/L (135-145)
[2024-06-10 06:21] LABS: Lipase 535 U/L (8-78)
[2024-06-10] MEDS: Enoxaparin Sodium 40 MG/0.4 ML SYRINGE SUBCUT (07:40)
[2024-06-10] MEDS: 0.9 % Sodium Chloride Flush 3 ML SYRINGE IVFLUSH (07:41)
[2024-06-10 08:00] VITALS: BP 165/82; PULSE 89; TEMP 37.2; O2SAT 94
[2024-06-10] MEDS: diphenhydrAMINE HCL 50 MG/ML VIAL 25 MG IVPUSH (09:40)
[2024-06-10 12:00] VITALS: BP 165/97; PULSE 87; TEMP 37.3; O2SAT 92
--- NOTE | 2024-06-10 12:43 | P.PNIM_ITS ---
Subjective Subjective Date of Service: 06/10/24 Interval History: f/u on acute pancreatitis and concern of pancreatic mass pain is mild, lipase level down from >3000 to 500. c.o feeling swollen after lovenox today, there was no noted swelling in the throat or hands Physical Exam 2 Vital Signs: Vital Signs: Last Vital Signs Temp 98.9 F 06/10/24 08:00 Pulse 89 06/10/24 08:00 Resp 18 06/10/24 04:00 BP 165/82 H 06/10/24 08:00 Pulse Ox 94 06/10/24 08:00 O2 Del Method Room Air 06/10/24 08:00 BMI result Body Mass Index 31.0 Const: Other: General: AO X 3, no acute distress heent: did not appreciate, throat swelling or any other swelling Resp: CTA bilateral CVS: S1,S2,RRR GI: +BS, NT, no distention Skin: No rash Neuro: motor grossly intact Psych: appropriate affect Objective Data Active Medications Acetaminophen (Acetaminophen 325 Mg Tablet) 650 mg PO Q6H PRN PRN Reason: Pain, Mild (Pain Scale 1-3), fever or headache Last Admin: 06/10/24 11:01 Dose: 650 mg Documented By: SAMI Calcium Carbonate (Calcium Carbonate 750 Mg Tab.Chew) 750 mg PO Q4H PRN PRN Reason: Heartburn Last Admin: 06/09/24 04:42 Dose: 750 mg Documented By: CHENG Diphenhydramine HCl (Diphenhydramine Hcl 50 Mg/Ml Vial) 25 mg IVPUSH Q6H PRN PRN Reason: Allergic Reaction Last Admin: 06/10/24 09:40 Dose: 25 mg Documented By: SAMI Lactated Ringer's (Lr) 1,000 mls @ 125 mls/hr IVCONT .Q8H [place] Last Admin: 06/10/24 07:41 Dose: 125 mls/hr Documented By: SAMI Magnesium Hydroxide (Milk Of Magnesia 30 Ml Oral.Susp) 30 ml PO DAILY PRN PRN Reason: Constipation Last Admin: 06/09/24 04:42 Dose: 30 ml Documented By: CHENG Melatonin (Melatonin 3 Mg Tablet) 6 mg PO BEDTIME PRN PRN Reason: Insomnia Last Admin: 06/09/24 20:28 Dose: 6 mg Documented By: KARENA Morphine Sulfate (Morphine Sulfate 4 Mg/Ml Cartridge) 4 mg IVPUSH Q4H PRN; Protocol PRN Reason: Pain, Severe (Pain Scale 7-10) Last Admin: 06/09/24 09:13 Dose: 4 mg Documented By: JLUIS Ondansetron HCl (Ondansetron Hcl 4 Mg/2 Ml Vial) 4 mg IVPUSH Q8H PRN PRN Reason: Nausea and Vomiting Last Admin: 06/09/24 14:59 Dose: 4 mg Documented By: BJ Sodium Chloride (0.9 % Sodium Chloride Flush 3 Ml Syringe) 3 ml IVFLUSH QSHIFT [facility] Last Admin: 06/10/24 07:41 Dose: 3 ml Documented By: SAMI Labs 06/10/24 05:38 06/10/24 05:38 Labs: Laboratory Results - last 24 hr 06/10/24 05:38 MCV 86.0 MCH 28.1 MCHC 32.6 RDW 13.3 Plt Count 167 MPV 9.4 Immature Gran % (Auto) 0.6 H Neut % (Auto) 82.8 H Lymph % (Auto) 7.9 L [place] % (Auto) 8.2 Eos % (Auto) 0.3 Baso % (Auto) 0.2 Lymph # (Auto) 1.0 L [place] # (Auto) 1.0 Eos # (Auto) 0.0 Baso # (Auto) 0.0 Abs Immat Gran (auto) 0.08 H Absolute Neuts (auto) 10.5 H Absolute Nucleated RBC 0.000 Nucleated RBC % (auto) 0.0 PT 15.0 H INR 1.2 H Anion Gap 11 L Estim Creat Clear Calc 104.6 Estimated GFR > 60 Fasting Glucose 108 H Calcium 8.8 Total Bilirubin 2.1 H Direct Bilirubin 0.5 AST 42 H ALT 89 H Alkaline Phosphatase 97 Total Protein 6.0 L Albumin 3.4 L Lipase 535 H Assessment and Plan (1) Pancreatic mass: Status: Acute (2) Acute pancreatitis: Status: Acute Plan 59-year-old female with no pertinent past medical history and not on prescription medications who presents to the emergency department for evaluation of abdominal pain and found have acute pancreatitis with pancreatic lesin Acute pancreatitis, pain is much better, lipase down to 500 from > 300, mrcp no definitive mass, may have passed a stone, given that she's improving and labs better, starting liquid diet and advance, continue monitoring labs, will need repeat MRI on outpatient basis. [id number] pending Elevated transaminases-related to above, labs trending down -follow LFTs Asymptomatic bacteriuria:hold Abx DVT prophylaxis: She reports reaction to lovenox, out of bed, ambulate Full code Quality Stroke Does the patient have a stroke diagnosis?: No VTE Prior VTE?: No VTE Risk Level:: Medical - moderate - high VTE Device Contraindication: Treatment Not Indicated VTE Drug Contraindication: N/A - Med Ordered
[2024-06-10 15:48] VITALS: BMI 32.5
[2024-06-10 16:03] VITALS: BP 162/80; PULSE 88; RESP 18; TEMP 36.6; O2SAT 93
[2024-06-10 19:17] VITALS: BP 169/91; PULSE 89; RESP 20; TEMP 37.2; O2SAT 94
[2024-06-10] MEDS: ondansetron HCL 4 MG/2 ML VIAL IVPUSH (19:54)
[2024-06-10] MEDS: Morphine Sulfate 4 MG/ML CARTRIDGE IVPUSH (19:58)
--- NOTE | 2024-06-10 20:00 | MHC.PIE ---
p; pt c/o pain 5/10 asking for morphine 2 mg iv instead of 4 mg iv. i; dr yen notified - ok to give morphine 2 mg instead of 4 for pain 5 e; will cont to monitor
[2024-06-10] MEDS: Melatonin 3 MG TABLET 6 MG PO (20:38)
--- NOTE | 2024-06-10 23:14 | P.PNGI_ITS ---
Subjective Subjective Date of Service: 06/10/24 Interval History: Patient seen at 7:30PM Reports feeling much better, although still with some low grade discomfort. Passing flatus. Toleraing liquids. Denies N/V. Critical Care Time (minutes): 0 Physical Exam 2 Vital Signs: Vital Signs: Last Vital Signs Temp 98.9 F 06/10/24 19:17 Pulse 89 06/10/24 19:17 Resp 20 06/10/24 19:17 BP 169/91 H 06/10/24 19:17 Pulse Ox 94 06/10/24 19:17 O2 Del Method Room Air 06/10/24 19:17 BMI result Body Mass Index 32.5 Const: General: cooperative, healthy appearing, comfortable, no acute distress, well developed, alert and awake HEENT: Other: Anicteric sclerae GI: Other: Nondistended, Soft, Minimal diffue tenderness, no mass Objective Data Labs 06/10/24 05:38 06/10/24 05:38 Labs: Laboratory Results - last 24 hr 06/10/24 05:38 WBC 12.7 H RBC 5.66 H Hgb 15.9 Hct 48.7 H MCV 86.0 MCH 28.1 MCHC 32.6 RDW 13.3 Plt Count 167 MPV 9.4 Immature Gran % (Auto) 0.6 H Neut % (Auto) 82.8 H Lymph % (Auto) 7.9 L [place] % (Auto) 8.2 Eos % (Auto) 0.3 Baso % (Auto) 0.2 Lymph # (Auto) 1.0 L [place] # (Auto) 1.0 Eos # (Auto) 0.0 Baso # (Auto) 0.0 Abs Immat Gran (auto) 0.08 H Absolute Neuts (auto) 10.5 H Absolute Nucleated RBC 0.000 Nucleated RBC % (auto) 0.0 PT 15.0 H INR 1.2 H Sodium 139 Potassium 4.0 Chloride 108 Carbon Dioxide 24 Anion Gap 11 L BUN 10 Creatinine 0.68 Estim Creat Clear Calc 104.6 Estimated GFR > 60 Fasting Glucose 108 H Calcium 8.8 Total Bilirubin 2.1 H Direct Bilirubin 0.5 AST 42 H ALT 89 H Alkaline Phosphatase 97 Total Protein 6.0 L Albumin 3.4 L Lipase 535 H Imaging MRI - abdomen: Radiologist's impression: Pancreatitis, Biliary dilatation No definive mass and no definitive CBD tones Procedures Date of Service Date of Service: 06/10/24 Progress Note: A&P Assessment and plan (1) Acute pancreatitis: Status: Acute Assessment and Plan: Imp: Resolving pancreatitis. I feel this is a case of resolving biliary pancreatitis with passage of a stone given the acute onset and rapid resolution thus far. The MRI does not show any definitive CBD stones and therefore I will hold off on an ERCP given the ongoing resolving pancreatitis. Rec: Continue supportive care and F/U labs, I reviewed with her the need for a F/U MRCP and MRI of the abdomen in 1 or 2 months so as to be sure things have returned to their baseline and there is no mass and no CBD stones. I advised her that my office will be in touch with her to set up the MRI/MRCP and F/U OV,. She understood and was comfortable with that plan. Thanks Time Spent With Patient Time: Total time managing care of this patient today ____ minutes. Quality Stroke Does the patient have a stroke diagnosis?: No VTE Prior VTE?: No VTE Risk Level:: Medical - moderate - high VTE Device Contraindication: Treatment Not Indicated VTE Drug Contraindication: N/A - Med Ordered
[2024-06-11] MEDS: Acetaminophen 325 MG TABLET 650 MG PO (01:17)
--- NOTE | 2024-06-11 01:23 | MHC.PIE ---
p; pt refusing ivf - LR at 125ml/h. note; pt is on clear liquid diet and is tolerating i; dr yen notified e; will cont to monitor
[2024-06-11 03:39] VITALS: BP 160/70; PULSE 77; RESP 16; TEMP 36.8; O2SAT 92
[2024-06-11 07:03] LABS: Hematocrit 45.8 % (37.0-47.0); Hemoglobin 15.1 g/dl (12.0-16.0); Mean Corpuscular Hemoglobin 28.2 pg (27.0-33.0); Mean Corpuscular Volume 85.4 fL (80.0-98.0); Mean Platelet Volume 9.4 fL (9.4-12.3); Platelet Count 165 X10*3/uL (160-400); Red Blood Count 5.36 X10*6/uL (4.20-5.50); White Blood Count 12.4 X10*3/uL (4.8-10.8)
[2024-06-11 07:28] LABS: Anion Gap 12 (12-20); Blood Urea Nitrogen 6 mg/dL (9-16); Carbon Dioxide 26 mmol/L (22-29); Chloride 104 mmol/L (96-108); Creatinine Clr Calc Pharmacy 117.5; Estimated Glomerular Filt Rate > 60; Glucose Random 92 mg/dL (60-115); Potassium 3.5 mmol/L (3.3-5.1); Sodium 138 mmol/L (135-145)
[2024-06-11 08:00] VITALS: BP 170/95; PULSE 92; RESP 16; TEMP 36.6; O2SAT 98
[2024-06-11] MEDS: 0.9 % Sodium Chloride Flush 3 ML SYRINGE IVFLUSH (08:21)
--- NOTE | 2024-06-11 09:13 | PM.DS ---
DS: Providers Provider Date of Service: 06/11/24 Date of admission: 06/09/24 02:54 Primary care physician: Unknown Physician Consults: 06/09/24 02:56 Consult to Gastroenterology Routine Consulting Provider: Ander Meza Reason for consultation: pancreatitis DS: Diagnosis Discharge Diagnosis (1) Acute pancreatitis: Status: Acute DS: Summary Hospital Course Hospital Course: admission hpi Chief Complaint: abdominal pain This is a 59-year-old female with no pertinent past medical history and not on prescription medications who presents to the emergency department for evaluation of abdominal pain. Patient states she had sudden onset of severe epigastric discomfort that started on the day of presentation. It was constant, radiated to the back and without any relieving factors. No history of similar pains before. Also had associated nausea and vomiting with the pain. Patient is unable to tolerate p.o. intake. Does have a history of cholecystectomy. No history of pancreatitis before. No fever, chills, chest discomfort, palpitations, shortness of breath, changes in urinary or bowel habits. In the emergency department, lipase found to be elevated along with elevation of AST/ALT and alkaline phosphatase. Imaging with acute interstitial pancreatitis and obstruction of the ampulla of Vater. hospital course: Patient presented with abdominal pain and work with CT showed Acute interstitial pancreatitis, fsunctional or mechanical obstruction in the region of the ampulla of Vater and findings suspicious for possible pancreatic neoplasm Lipase level was >3000, TIbili of 1.7, AST of 245, ALT of 170. She was hydrated, made NPO and given pain med. The next day her pain significantly improved with lipase droping to 535 then 88, ALT dropin to 89 then 54, and AST to 42 then 23. She had an MRCP showing Redemonstration of severe intra and extrahepatic biliary ductal dilatation up to the level of the ampulla with a few very subtle indeterminate low T2 signal voids in the lumen of the CBD that could be artifactual, although debris and stones are not excluded. Given drastic drop in labs very quickly and pain nearly resolved, it is likely that she may have passed a stone. She has been seen by GI (Dr. Meza) who advises an outpatient follow up with repeat MRI in 1 to 2 months, his office will arrange for this. Her diet has been advanced and she is tolerating regular diet. Of note she's found to have elevated BP consistent with untreated HTN and is started on Norvasc 5 mg daily, she will need outpatient follow up for further med adjustment for optiaml BP control Also note that second time patient was given Lovenox she reported that she had swelling in arm and throat shortly threafter, I could not appreciate swelling when i examined her, but out of abundance of caution, lovenoox stopped and allergy recorded Time Attestation Discharge Coordination Time (in mins): 35 Quality: Safe Use of Opioids Does Pt have an Active Cancer Diagnosis on the Problem List?: No Quality: Stroke Does the patient have a stroke diagnosis?: No Physical Exam Vital Signs: Vital Signs: Last Vital Signs Temp 97.8 F 06/11/24 08:00 Pulse 92 06/11/24 08:00 Resp 16 06/11/24 08:00 BP 170/95 H 06/11/24 08:00 Pulse Ox 98 06/11/24 08:00 O2 Del Method Room Air 06/11/24 08:00 BMI result Body Mass Index 32.5 DS: Data Data Completed and Pending Labs on day of discharge: Laboratory Results - last 24 hr 06/11/24 06:15 WBC 12.4 H RBC 5.36 Hgb 15.1 Hct 45.8 MCV 85.4 MCH 28.2 MCHC 33.0 RDW 13.0 Plt Count 165 MPV 9.4 Absolute Nucleated RBC 0.000 Nucleated RBC % (auto) 0.0 Sodium 138 Potassium 3.5 Chloride 104 Carbon Dioxide 26 Anion Gap 12 BUN 6 L Creatinine 0.62 Estim Creat Clear Calc 117.5 Estimated GFR > 60 Random Glucose 92 Calcium 9.0 Discharge Plan Discharge Anticipated Discharge Date/Time: 06/11/24 09:13 Patient Disposition: Home, Self-Care Discharge Diagnosis: Acite pancreatitis Referrals: Physician,Unknown J [Primary Care Provider] - 1 Week Discharge Medications: New amlodipine 5 mg Tablet 5 mg PO DAILY Qty: 90 0RF Protocol: Hold for SBP< HOLD for SBP < : 90 No Action No Known Home Meds Discharge Orders: Discharge Order (Routine); Ordered 06/11/24 Ordered By: Yoel Andrea Diet: Advance to usual diet Activity on Discharge: As tolerated Stand Alone Forms: Patient Portal Discharge page Print Language: Wallisian Care Plan Goals: full recovery from pancreatitis and full work up for pancreatic abnormality seen on CT Health Concerns: Pancreatitis concern for pancreatic lesion Hypertension Plan of Treatment: avoid fatty food you will follow up with Dr. Meza for follow up and have an MRI scheduled, his office will be in touch with you, if you don't hear from them call [phone] Take Norvasc 5 mg daily for high blood pressure, follow up with your Doctor in a week, you may need additional medication adjustment for optimal blood pressure control Assessment: see above
[2024-06-11 09:17] VITALS: BP 166/85; PULSE 86
[2024-06-11] MEDS: amLODIPine Besylate 5 MG TABLET PO (09:29)
[2024-06-11 09:35] LABS: Alanine Aminotransferase 54 U/L (0-31); Albumin Level 3.4 g/dL (3.5-5.0); Alkaline Phosphatase 106 U/L (39-117); Aspartate Amino Transferase 23 U/L (5-31); Bilirubin Direct 0.8 mg/dL (0.0-0.5); Bilirubin Total 2.7 mg/dL (0.0-1.0); Lipase 88 U/L (8-78); Total Protein 6.2 g/dL (6.5-8.0)
[2024-06-11 11:43] LABS: Carbohydrate Antigen 19-9 5 U/mL (<34)
--- NOTE | 2024-06-11 13:01 | MHC.CM.PN ---
PT DCD HOME SELF CARE
== END 2024-06-11 13:29 | disposition home or self-care (01) | DRG 282 ==
LOC: HO.ED 06-09 02:31 → HO.EDOVER 06-09 02:57 → HO.S3 06-10 14:02
PROVIDERS: Internal Medicine; Admitting Provider Student in an Organized Health Care Education/Training Program; Emergency Provider Emergency Medicine; Visit Provider Internal Medicine
DX: K85.10 Biliary acute pancreatitis without necrosis or infection (principal); K80.50 Calculus of bile duct without cholangitis or cholecystitis without obstruction; Z79.899 Other long term (current) drug therapy
CPT/HCPCS: 36415; 74177; 74183; 80048; 80053; 80076; 81001; 82248; 83690; 84478; 84484; 85025; 85027; 85610; 86301; 93005; 99285; A9585; J1170; J1200; J1650; J2270; J2405; J7120; Q9967

== ENCOUNTER → 2024-06-09 02:54 | Outpatient (BNV) | payer OTHER, SELFPAY | PROVIDERS: Admitting Provider Student in an Organized Health Care Education/Training Program; Emergency Provider Emergency Medicine; Visit Provider Student in an Organized Health Care Education/Training Program | DX: K85.90 Acute pancreatitis without necrosis or infection, unspecified (principal) | CPT/HCPCS: 99222; 99232; 99239; 99499 ==